=== PATIENT | male | born 1975 | race Two or more races ===

== ENCOUNTER 2020-09-09 19:57 | Emergency (ER) | payer MEDICAID ==
[~2020-09-09] VITALS: Ht 188 cm; Wt 158.8 kg
[2020-09-09 19:58] VITALS: BP 137/94
== END 2020-09-09 20:11 | disposition left against medical advice (07) ==
LOC: ER 20:01
DX: R10.9 Unspecified abdominal pain (principal); Z53.21 Procedure and treatment not carried out due to patient leaving prior to being seen by health care provider